=== PATIENT | female | born 1950 | race Caucasian/White ===

== ENCOUNTER → 2024-02-25 14:07 | Outpatient (REF) | payer OTHER, SELFPAY | LOC: RAD 14:07 | PROVIDERS: ATTENDING PHYSICIAN Nurse Practitioner | DX: J06.9 Acute upper respiratory infection, unspecified (principal); R07.81 Pleurodynia | CPT/HCPCS: 71046; 71100 ==

== ENCOUNTER → 2024-03-16 13:33 | Outpatient (REF) | payer OTHER, SELFPAY | LOC: HWRAD 13:33 | PROVIDERS: ATTENDING PHYSICIAN Nurse Practitioner; FAMILY PHYSICIAN Internal Medicine | DX: R10.11 Right upper quadrant pain (principal) | CPT/HCPCS: 76700 ==

== ENCOUNTER → 2024-04-07 14:27 | Outpatient (REF) | payer OTHER, SELFPAY | LOC: RAD 14:27 | PROVIDERS: ATTENDING PHYSICIAN Nurse Practitioner | DX: J18.9 Pneumonia, unspecified organism (principal) | CPT/HCPCS: 71046 ==

== ENCOUNTER → 2024-11-11 09:13 | Outpatient (REF) | payer OTHER, SELFPAY | LOC: HWRAD 09:13 | PROVIDERS: ATTENDING PHYSICIAN Nurse Practitioner; REFERRING PHYSICIAN Surgery | DX: K80.20 Calculus of gallbladder without cholecystitis without obstruction (principal) | CPT/HCPCS: 76700 ==